=== PATIENT | female | born 2000 | race Caucasian/White ===

== ENCOUNTER 2021-10-17 05:05 | Inpatient (IN) | payer MEDICAID, SELFPAY ==
[2021-10-16] VITALS (13 sets, daily range): BP systolic 129–157; BP diastolic 82–97; PULSE 88–110; RESP 15; TEMP 36.2; BMI 33.0
[2021-10-16] MEDS: miSOPROStol 100 mcg tablet 25 MCG VAGINAL ×2 (19:22→23:25)
[2021-10-16 19:30] LABS: Amphetamines Screen Urine Negative (Negative); Barbiturates Screen Urine Negative (Negative); Benzodiazepines Screen Urine Negative (Negative); Cocaine Screen Urine Negative (Negative); Opiate Screen Urine Negative (Negative); PCP Screen Urine Negative (Negative); THC Screen Urine Negative (Negative)
[2021-10-16 19:52] LABS: Basophils # 0.1 10^3/uL (0.0-0.1); Basophils % 0.4 %; Eosinophils # 0.3 10^3/uL (0.0-0.8); Eosinophils % 2.6 %; Hematocrit 34.1 % (37.0-47.0); Lymphocytes # 2.1 10^3/uL (0.8-4.8); Lymphocytes % 18.6 %; Mean Corpuscular HGB Conc 35.2 g/dL (30.0-36.0); Mean Corpuscular Hemoglobin 32.2 pg (28.0-34.0); Mean Corpuscular Volume 91.4 fl (81-99); Mean Platelet Volume 11.7 fL (7.4-10.4); Monocytes # 0.8 10^3/uL (0.2-0.9); Monocytes % 7.2 %; Neutrophils # 7.98 10^3/uL (1.8-7.7); Neutrophils % 70.8 %; Nucleated Red Blood Cells % 0 %; Platelet Count 234 10^3/cmm (130-400); Red Blood Count 3.73 10^6/uL (4.1-5.3); Red Cell Distribution Width 13.5 % (12.1-15.1); White Blood Count 11.3 10^3/uL (4.0-10.0)
[2021-10-17] VITALS (118 sets, daily range): BP systolic 106–160; BP diastolic 54–99; PULSE 80–155; RESP 14–20; TEMP 35.9–37.4; O2SAT 95–100
[2021-10-17] MEDS: lactated ringers 1,000 ML 999 ML IV ×2 (02:25→08:52)
[2021-10-17] MEDS: fentaNYL 50 mcg/mL INJ 2mL IVP ×5 (02:54→09:06)
[2021-10-17] MEDS: miSOPROStol 100 mcg tablet 25 MCG VAGINAL ×2 (03:27→09:07)
[2021-10-17] MEDS: dextrose 5%-lactated ringers 1,000 ML 125 ML IV ×3 (06:22→19:37)
[2021-10-17] MEDS: ondansetron 2 mg/ML SDV 2 mL 4 MG IVP ×2 (10:49→21:41)
--- NOTE | 2021-10-17 11:00 | ANES.PAUD2 ---
Pre-Anesthetic Update Pre-Anesthetic Assessment: Date of Surgery/Procedure: 10/17/21 Proposed Procedure: Labor epidural Any changes to Pre-Anesthetic Assessment?: No Labs Last 48hrs: Short CBC 10/16/21 10/16/21 Range/Units 18:15 18:15 WBC Cancelled 11.3 H Hgb Cancelled 12.0 Hct Cancelled 34.1 L MCV Cancelled 91.4 Plt Count Cancelled 234 Neut % (Auto) Cancelled 70.8 Neut # (Auto) Cancelled 7.98 H Vitals: Temperature 97.7 F 10/17/21 10:18 Pulse Rate 142 H 10/17/21 10:51 Pulse Rhythm 10/16/21 18:15 Pulse Strength 0+ Absent 10/16/21 18:15 Respiratory Rate 20 H 10/17/21 09:06 Respiratory Effort Non-Labored 10/17/21 09:06 Respiratory Depth Normal 10/17/21 09:06 Respiratory Patter n 10/17/21 09:06 Blood Pressure 136/94 10/17/21 10:51 Pulse Oximetry 99 10/17/21 10:16 Oxygen Delivery Me thod 10/16/21 20:00 Exam: Pre-Anes Outpt Exam: alert, oriented x 3, clear to auscultation bilaterally and regular rate & rhythm Cardiac Studies: No Data to Display
--- NOTE | 2021-10-17 11:01 | ANES.PROC ---
Anesthesia Procedures Procedure/Date: 10/17/21 Epidural: Time Out Performed: Yes Consents Signed: Procedure Consent Consent: requested by attending/covering physician, from patient, risks and benefits reviewed and patient agrees to proceed Lumbar Level: L3-L4 Epidural position: sitting Epidural procedure: sterile prep of area, 1% lidocaine to numb the area, 18 g needle, neg for paresthesia, test dose given, 1.5% xylocaine 1:200k epi, placed PCEA, no systemic response, sterile dressing applied and 0.2% Ropiavacaine @ mls/hr (13) Additional Comments: CHRIS at 6cm, cath at 11cm, 5mls of 2% lido bolused
--- NOTE | 2021-10-17 12:00 | PM.OPHPUD ---
Labor & Delivery H&P Update Date of Procedure: October 17, 2021 Date H&P Performed: 10/14/21 Changes to previous documentation: None Admission Diagnosis: 21-year-old 1 at 31 weeks estimated gestational age Primary indication for procedure: Postdates. Currently 41 weeks estimated gestational age Planned procedure: Induction for spontaneous vaginal delivery Other information: The patient has had a that been relatively unremarkable. Earlier in her she was positive for marijuana. Her most recent blood tests have been negative. Her blood type is A-. She received a RhoGam shot on 22 July. She passed her glucose screen. Her group B strep was negative. Her Covid test was negative. She received a pertussis shot. The remainder of her labs are within normal limits.
[2021-10-17] MEDS: oxytocin 30 UNIT/500 ML BAG IV (13:15)
[2021-10-17] MEDS: famotidine 20 mg/2 mL INJ IVP (22:14)
[2021-10-17] MEDS: citric acid-sodium citrate 30 mL UDC PO (22:15)
[2021-10-17] MEDS: metoclopramide 5 mg/mL SDV 2 mL 10 MG IVP (22:15)
--- NOTE | 2021-10-17 23:36 | PM.OP ---
Operative Report Date of procedure: October 17, 2021 Pre-op diagnosis: 1. 21-year-old 1 at 41 weeks estimated gestational age. 2. Failure to progress Post-op diagnosis: Status post lower transverse section Procedure done: Lower transverse section Specimens removed/disposition: 1. Female infant with a weight of 8 pounds 0 ounces and Apgars of 6 and 8 2. Placenta with a three-vessel cord delivered intact Pathology: None Surgeon: Memo Kingston Estimated blood loss: 800 Complications: None Procedure: The patient was brought back to the operating room where she was prepped and draped in usual sterile fashion. Anesthesia was found to be adequate. A lower transverse skin incision was then made with a #10 blade. I then dissected down to the underlying subcutaneous tissue until arriving at the prerectal fascia. The fascia was then nicked with the scalpel bilaterally. The fascial incisions were then carried laterally with Ronquillo scissors. Attention was then turned to the superior aspect of the incision which was grasped with kochers and tented up away from the underlying rectus abdominis muscles. The muscles were then dissected away from the fascia manually, and later with Ronquillo scissors. Attention was then turned to the inferior aspect of the incision, and the fascia was dissected away from the underlying muscle in similar fashion. The rectus abdominis muscles were then spread manually. The peritoneum was entered manually. Excellent visualization of the uterus was noted. A lower transverse uterine incision was then made with a #10 blade. Upon arriving at the intrauterine cavity, the uterine incision was then extended manually. The infant was noted to be in vertex position. The baby was delivered without difficulty. After delivery of the head, the mouth and nose were suctioned at the site of the incision. There was no meconium. There was no nuchal cord. The remainder of the body was then delivered and placed on the abdomen. The cord was cut and clamped. The baby was then handed to the waiting nurse. The placenta was removed intact. The uterus was externalized. The intrauterine cavity was cleansed of any remaining debris. The uterine incision was reapproximated in 2 layers. The first layer was performed with 0 Vicryl in a running locked stitch. The second layer was an imbricating stitch also using 0 Vicryl. The uterus was replaced into the abdomen. The peritoneum was then irrigated with warm saline. I reexamined the uterine incision and found it to be hemostatic. The rectus abdominis muscles were then reapproximated using 0 Vicryl in a running stitch. The fascia was then reapproximated using 0 Vicryl in running stitch. The subcutaneous tissue was then reapproximated using 0 Vicryl in a running stitch. The skin was reapproximated using andrés. A sterile dressing was placed. All counts were correct x2. Both the mother and baby were in stable condition.
[2021-10-18] VITALS (14 sets, daily range): BP systolic 113–144; BP diastolic 63–92; PULSE 102–132; RESP 14–18; TEMP 36.6–37.9; O2SAT 93–96
--- NOTE | 2021-10-18 | PC.NURSE ---
Still in the OR at this time.
[2021-10-18] MEDS: dextrose 5%-lactated ringers 1,000 ML 125 ML IV (05:41)
--- NOTE | 2021-10-18 08:15 | ANE.PACU2 ---
Inpatient post-anesthesia follow up: Airway intact: Yes Vital signs: Temperature 100.3 F Pulse Rate 132 Respiratory Rate 16 Blood Pressure 143/85 Pulse Oximetry 95 Oxygen Delivery Me thod Room Air Oxygen Flow Rate Fraction of Inspir ed Oxygen Hydration adequate: Yes Nausea and vomiting: No Pain level: 3 Mental status: Baseline Additional Comments: Epidural converted to GETA
--- NOTE | 2021-10-18 10:48 | PM.OBGYPN ---
ADAPTED PHYSICAL EDUCATION SPECIALIST Subjective Subjective: Interval history: The patient is doing well. Her pain is been well controlled. She is breast-feeding well. Her bleeding has been within normal limits. She has passed gas Labor: Station: -2 Amniotic Membrane Status: Ruptured Monitor Mode: Palpation Contraction Pattern: Regular Status: Category I Vitals/I&O/Wt Last Vital Signs Temp 100.3 F H 10/18/21 05:30 Pulse 132 H 10/18/21 05:30 Resp 16 10/18/21 05:30 BP 143/85 10/18/21 05:30 Pulse Ox 95 10/18/21 05:30 10/17/21 10/18/21 10/18/21 22:59 06:59 14:59 Intake Total 789.650 / 3311.576 6372 / 3795.900 Output Total 1200 / 1200 1300 / 2500 2200 / 2200 Balance -410.350 / 595.900 700 / 1295.900 -2200 / -2200 Weight last 48 hrs Weight 205 lb Physical Exam Narrative: EXAM NARRATIVE: The patient is alert. She appears comfortable. Her heart has a regular rate and rhythm with no murmurs appreciated. Lungs are clear to auscultation bilaterally. Her fundus is firm and below the umbilicus. Urinary Catheter Management: Shrestha Latex: Cath Placed During This Visit: yes Reason for Continuing Indwelling Catheter: Perioperative Use in Selected Surgeries Urinary Catheter Date of Insertion: 10/17/21 Urinary Catheter Time of Insertion: 10:35 Data : 10/16/21 18:15 A&P Assessment and plan (1) Status post : I anticipate the patient will continue to do well. Since she has already passed gas, is ambulating today, and is breast-feeding well, she should be able to go home tomorrow. Status: Acute Attestations Medical Necessity Statement*: Routine post care. Coding Level of Care Code Acute Special Agent In Charge for Chg Fwd Diagnoses Status post Z98.891
[2021-10-18] MEDS: ketorolac 30 mg/mL INJ IVP ×3 (11:21→23:45)
[2021-10-18] MEDS: HYDROcodone-acetaminophen 5-325 mg Tablet PO (11:21)
--- NOTE | 2021-10-18 15:00 | PC.NURSE ---
Pt ambulated in hallway and around nursing station x1 lap. Pt did well without complaints.
[2021-10-18 15:36] LABS: Hemoglobin 10.7 g/dL (11.5-15.3); Mean Corpuscular HGB Conc 33.4 g/dL (30.0-36.0); Mean Corpuscular Hemoglobin 32.1 pg (28.0-34.0); Mean Corpuscular Volume 96.1 fl (81-99); Mean Platelet Volume 11.3 fL (7.4-10.4); Platelet Count 249 10^3/cmm (130-400); Red Blood Count 3.33 10^6/uL (4.1-5.3); Red Cell Distribution Width 13.6 % (12.1-15.1)
[2021-10-18] MEDS: docusate sodium 100 mg Capsule PO (18:23)
[2021-10-19 05:00] VITALS: BP 125/82; PULSE 99; RESP 18; TEMP 36.7
[2021-10-19] MEDS: HYDROcodone-acetaminophen 5-325 mg Tablet PO ×2 (05:57→15:33)
[2021-10-19] MEDS: docusate sodium 100 mg Capsule PO (10:01)
[2021-10-19] MEDS: prenatal vitamin Capsule 1 CAP PO (10:01)
[2021-10-19] MEDS: ibuprofen 800 mg tablet PO ×2 (10:02→15:33)
[2021-10-19 10:13] VITALS: BP 130/88; PULSE 97; RESP 16; TEMP 36.8; O2SAT 97
--- NOTE | 2021-10-19 12:29 | P.DS_ITS ---
Discharge Providers EDUCATION PROGRAM MANAGER Date of Admission: 10/17/21 05:05 Date of Discharge: 10/19/21 Attending Provider at Admission: Memo Kingston MD Attending Provider at Discharge: Memo Kingston MD Diagnoses at Discharge Discharge Diagnosis (1) Status post : Status: Acute Reason for Visit Reason for Visit: Induction Hospital Course Hospital Course The patient presented to the hospital for induction due to postdates. Unfortunately, she did not progress despite using Cytotec, an amniotomy, and Pitocin. As result a was performed. Her post course was unremarkable. Her bleeding was within normal limits. Her pain was well controlled. She passed flatus, and had her diet advanced appropriately. She to lerated her diet well. There were no concerns. Information Peripartum Data: Delivery Method: Physical Exam Narrative: EXAM NARRATIVE: She is in no acute distress Lungs are clear auscultation bilaterally Her heart has a regular rate and rhythm Her fundus is below the umbilicus and firm Her dressing is clean, dry and intact Her extremities have trace edema Urinary Catheter Management: Shrestha Latex: Cath Placed During This Visit: yes, but has since been removed by the nurse Reason for Continuing Indwelling Catheter: Decision to DC Catheter Urinary Catheter Date of Insertion: 10/17/21 Urinary Catheter Time of Insertion: 10:35 Date Urinary Catheter Removed: 10/18/21 Time Urinary Catheter Discontinued: 13:15 Discharge Data Studies Completed and Pending Pending at discharge Category Date Time Status Complete Crossmatch Stat Lab 10/16/21 18:15 Results Rho D Immune Globulin Stat Lab 10/16/21 18:15 Results Type and Screen Stat Lab 10/17/21 21:29 Results Laboratory Results WBC 21.0 10^3/uL (4.0-10.0) H 10/18/21 14:00 Corrected WBC Cancelled 10/16/21 18:15 RBC 3.33 10^6/uL (4.1-5.3) L 10/18/21 14:00 Hgb 10.7 g/dL (11.5-15.3) L 10/18/21 14:00 Hct 32.0 % (37.0-47.0) L 10/18/21 14:00 MCV 96.1 fl (81-99) 10/18/21 14:00 MCH 32.1 pg (28.0-34.0) 10/18/21 14:00 MCHC 33.4 g/dL (30.0-36.0) 10/18/21 14:00 RDW 13.6 % (12.1-15.1) 10/18/21 14:00 Plt Count 249 10^3/cmm (130-400) 10/18/21 14:00 MPV 11.3 fL (7.4-10.4) H 10/18/21 14:00 Gran % Cancelled 10/16/21 18:15 Neut % (Auto) 70.8 % 10/16/21 18:15 Neut % (Auto) Cancelled 10/16/21 18:15 Lymph % (Auto) 18.6 % 10/16/21 18:15 Lymph % (Auto) Cancelled 10/16/21 18:15 [place] % (Auto) 7.2 % 10/16/21 18:15 [place] % (Auto) Cancelled 10/16/21 18:15 Eos % (Auto) 2.6 % 10/16/21 18:15 Eos % (Auto) Cancelled 10/16/21 18:15 Baso % (Auto) 0.4 % 10/16/21 18:15 Baso % (Auto) Cancelled 10/16/21 18:15 Neut # (Auto) 7.98 10^3/uL (1.8-7.7) H 10/16/21 18:15 Neut # (Auto) Cancelled 10/16/21 18:15 Lymph # (Auto) 2.1 10^3/uL (0.8-4.8) 10/16/21 18:15 Lymph # (Auto) Cancelled 10/16/21 18:15 [place] # (Auto) 0.8 10^3/uL (0.2-0.9) 10/16/21 18:15 [place] # (Auto) Cancelled 10/16/21 18:15 Eos # (Auto) 0.3 10^3/uL (0.0-0.8) 10/16/21 18:15 Eos # (Auto) Cancelled 10/16/21 18:15 Baso # (Auto) 0.1 10^3/uL (0.0-0.1) 10/16/21 18:15 Baso # (Auto) Cancelled 10/16/21 18:15 Absolute Gran (auto) Cancelled 10/16/21 18:15 Nucleated RBC % (auto) 0 % 10/16/21 18:15 Nucleated RBC % (auto) Cancelled 10/16/21 18:15 Nucleated RBCs # 0.0 /100WBC 10/16/21 18:15 Nucleated RBCs # Cancelled 10/16/21 18:15 Urine Opiates Screen Negative ng/mL (Negative) 10/16/21 18:15 Ur Barbiturates Screen Negative ng/mL (Negative) 10/16/21 18:15 Ur Phencyclidine Scrn Negative ng/mL (Negative) 10/16/21 18:15 Ur Amphetamines Screen Negative ng/mL (Negative) 10/16/21 18:15 U Benzodiazepines Scrn Negative ng/mL (Negative) 10/16/21 18:15 Urine Cocaine Screen Negative ng/mL (Negative) 10/16/21 18:15 U Marijuana (THC) Screen Negative ng/mL (Negative) 10/16/21 18:15 Blood Type A Negative 10/16/21 18:15 Rho(D) Type Negative 10/16/21 18:15 Antibody Screen Negative 10/16/21 18:15 Screen Negative (Negative) 10/18/21 14:00 Vitals Last Vital Signs Temp 98.3 F 10/19/21 10:13 Pulse 97 10/19/21 10:13 Resp 16 10/19/21 10:13 BP 130/88 10/19/21 10:13 Pulse Ox 97 10/19/21 10:13 Discharge Plan Discharge Patient Disposition: Home Condition: Stable Prescriptions: New ibuprofen 800 mg Tablet 800 mg PO TID Qty: 45 0RF hydrocodone-acetaminophen 5-325 mg Tablet 1 tab PO Q4H PRN (Reason: Moderate To Severe Pain) Qty: 28 0RF docusate sodium 100 mg Capsule 100 mg PO BID Qty: 14 0RF -U 106.5-1 mg Capsule 1 cap PO BREAKFAST Qty: 90 0RF Discontinued hydrocortisone 2.5 % cream 1 applic topical BID PRN (Reason: skin irritation) 7 Days Qty: 28 0RF Discharge Orders: Discharge Order (Routine); Ordered 10/19/21 Ordered By: Memo Kingston Referrals: Memo Kingston MD [Physician] - 4-7 days (at same time as her . Also set up 6 week .) Discharge Diet: Advance as tolerated Discharge Activity: Limit activity as instructed Patient Instructions: Depression (DC), Bleeding (DC), Preeclampsia and Eclampsia After Delivery (GEN), COVID-19 and (GEN), OB - Vashti/Sánchez, OB Discharge Report, OB Food/Drug Interaction Guide, Opioid Safety, OB Home Care Discharge Attestations EDUCATION PROGRAM MANAGER Time Spent in Discharge Care*: less than 30 min Specific Discharge Activities: Specific discharge activities: educating patient and educating and/or supporting family/caregiver Coding Level of Care Code Acute Keying Machine Operator for Chg Fwd Diagnoses Status post Z98.891
[2021-10-19] MEDS: lanolin oint 7 gm 1 APPLIC TOPICAL (13:09)
[2021-10-19 15:39] VITALS: RESP 18
--- NOTE | 2021-10-19 15:39 | PC.NURSE ---
Rhogam administered IM to pt right deltoid
[2021-10-19 16:20] VITALS: BP 123/87; PULSE 98; RESP 16; TEMP 36.9; O2SAT 99
== END 2021-10-19 17:15 | disposition home or self-care (01) | DRG 788 ==
LOC: OPOB 05:05 → OBGYN 05:05
PROVIDERS: Admitting Provider Family Medicine; Visit Provider Family Medicine
PROC: 10D00Z1 Extraction of Products of Conception, Low, Open Approach (ICD-10-PCS; CPT 59514; principal; 2021-10-17 22:20)
DX: O48.0 Post-term pregnancy (principal); Z3A.41 41 weeks gestation of pregnancy; Z37.0 Single live birth; O99.334 Smoking (tobacco) complicating childbirth; F17.210 Nicotine dependence, cigarettes, uncomplicated; O61.0 Failed medical induction of labor
CPT/HCPCS: 12345; 36415; 51702; 59025; 59409; 80306; 85025; 85027; 85460; 86850; 86900; 90384; 96374; 96376; J1885; J2250; J2274; J2405; J2704; J2765; J2795; J3010; J3490

== ENCOUNTER 2022-10-05 13:01 | Emergency (ER) | payer MEDICAID, SELFPAY ==
[2022-10-05 13:08] VITALS: BP 157/114; PULSE 110; RESP 18; TEMP 36.2; O2SAT 97
--- NOTE | 2022-10-05 13:11 | ECG_ITS ---
[facility] Test Date: 2022-10-05 Pat Name: Eugene Rose Department: Room: Gender: Female Rug Dyer Helper: : 2000 Requested By: Satish Dawson Order Number: [id number] Poonam MD: Mj Rinaldi M.D. Measurements Intervals [place] Rate: 113 P: 71 PA: 131 QRS: 75 QRSD: 93 T: 7 QT: 328 QTc: 451 Interpretive Statements SINUS TACHYCARDIA NONSPECIFIC T-WAVE ABNORMALITY ABNORMAL RHYTHM ECG INTERPRETATION BASED ON A DEFAULT AGE OF 40 YEARS No previous ECG available for comparison Electronically Signed On 10-06-2022 7:07:08 TIMBER WATCHMAN by Mj Rinaldi M.D. [email or web address]
--- NOTE | 2022-10-05 13:53 | XRR_ITS ---
PROCEDURE INFORMATION: Exam: XR Chest Exam date and time: 10/05/2022 2:03 PM Age: 22 years old Clinical indication: Pain; Left-sided; Additional info: Palpitations TECHNIQUE: Imaging protocol: Radiologic exam of the chest. Views: 1 view. COMPARISON: No relevant prior studies available. FINDINGS: Lungs: Unremarkable. No consolidation. Pleural spaces: Unremarkable. No pleural effusion. No pneumothorax. Heart/Mediastinum: Unremarkable. No cardiomegaly. Bones/joints: Unremarkable. XR/XR chest 1V portable [id number] IMPRESSION: No acute findings.
--- NOTE | 2022-10-05 13:57 | ED_ITS ---
HPI - Chest Pain General: Chief Complaint: Chest Pain Stated Complaint: chest/left arm pain Time Seen by Provider: 10/05/22 13:20 History of Present Illness: Patient is a 22-year-old female that presents to the emergency department with 2-week history of palpitations with 2 episodes of chest pain that radiates up into the neck. Patient first noticed symptoms approximately 2 weeks ago. She denies any shortness of breath. She does report that the palpitations and tachycardia wake her up in the night. At the time of her evaluation here in the emergency department she is mildly tac hycardic at a rate of 105-110. Patient also brings up concerns for pupillary dilation. Patient has no familial history. Medical history includes ADHD. She takes Concerta. She has been struggling with some anxiety and has taken a couple Xanax from her family members. Patient also uses marijuana but no apparent stimulant use Associated symptoms: Deny abdominal pain, dyspnea, fever(s), nausea, palpitations or vomiting Review of Systems General: Reports: 10 or more systems reviewed and unremarkable except in HPI and below Const: Denies: fever(s), chills, change in appetite, change in weight, fatigue or malaise Eyes: Denies: change in vision, eye discomfort, eye discharge or eye redness ENMT: Denies: throat pain, enlarged tonsils, odynophagia, hoarseness, ear or mastoid pain, ear discharge, change in hearing, tinnitus, nasal discharge, nasal congestion, post nasal drip or sinus pain Card: Denies: chest pain, palpitations, irregular heart rhythm, edema, dyspnea on exertion, orthopnea or leg pain with exertion Resp: Denies: dyspnea, productive cough, non-productive cough, wheezing, stridor or chest congestion GI: Denies: abdominal pain, nausea, vomiting, dysphagia, diarrhea, constipation, bloating, GI cramping or hematochezia : Denies: flank pain, difficulty voiding, dysuria, urinary frequency, urinary urgency, urinary hesitancy, oliguria or hematuria Musc: Denies: neck pain, back pain, extremity pain, joint pain, joint swelli ng, joint redness, joint warmth or muscle weakness Skin/Breast: Denies: rash, pruritus, erythema, photosensitivity or new lesions Neuro: Denies: headache(s), numbness in extremities, weakness in extremities, sensory changes, lack of coordination, difficulty walking, frequent falls, dizziness, confusion, Slurred speech present, difficulty communicating thoughts, seizure-like activity or involuntary movements Endo: Denies: polyuria, polydipsia or tired all the time French/Lymph: Denies: easy bruising or easy bleeding PFS ED PFSH: Medical History ADHD Social History Smoking and tobacco status: current every day smoker Physical Exam Narrative: EXAM NARRATIVE: No acute distress Afebrile vital signs stable Nonlabored breathing Const: COMMON NORMALS: no acute distress, average body habitus, patient oriented x3, no limitations and well nourished HENMT: COMMON NORMALS: normocephalic, hearing grossly normal bilaterally and Normal external nose present HEAD & SCALP: normocephalic NOSE: Normal external nose present and Normal nares present MOUTH: Normal oral and palatal mucosa present Eye: COMMON NORMALS: Equal, round and reactive pupils present and EOMs intact bilaterally PUPIL: Yes Equal, round and reactive pupils present Neck/C-Spine: COMMON NORMALS: no JVD Chest: COMMONS NORMALS: normal inspection of the chest Resp: COMMON NORMALS: normal respiratory effort, No retractions, No use of accessory muscles and clear to auscultation bilaterally AUSCULTATION: clear to auscultation bilaterally Cardio: COMMON NORMALS: no JVD, regular rate, regular rhythm, S1 normal heart sound present, S2 normal heart sound present, No gallops present (Cardio), No clicks present (Cardio), No murmurs present (Cardio), No rub (Cardio) and Peripheral pulses 2+ throughout RATE: regular rate RHYTHM: regular rhythm HEART SOUNDS: S1 normal heart sound present and S2 normal heart sound present PERIPHERAL PULSES: Peripheral pulses 2+ throughout GI: COMMON NORMALS: Normal to inspection, nondistended, normoactive bowel sounds present and Soft to palpation PALPATION: Yes Soft to palpation Neuro: COMMON NORMALS: patient oriented x3 Psych: COMMON NORMALS: mental status grossly normal, Normal thought process present, cooperative, normal affect, speech normal, activity/motor behavior normal, denies homicidal ideation and denies suicidal ideation SPEECH: Yes normal speech THOUGHT PROCESS: Normal thought process present Course Vital Signs: Vital signs: Vital Signs Temperature 97.2 F L 10/05/22 13:08 Pulse Rate 95 10/05/22 14:33 Respiratory Rate 17 10/05/22 14:33 Blood Pressure 144/89 10/05/22 14:33 Pulse Oximetry 100 10/05/22 14:33 MDM - Chest Pain Medical Decision Making Patient was evaluated in the emergency department today for complaints of chest pain. Really she complains more of tachycardia and palpitations. Frontal diagnosis includes anxiety, substance abuse, stimulant use, arrhythmia, cardiovascular congenital anomaly, thyroid disorder Patient was evaluated in the emergency department and underwent EKG, chest x- ray, laboratory studies to further evaluate for this tachycardia. IV was started and she was given a liter of fluid. May have been some component of dehydration as her heart rate improved with a liter of fluid. Currently her heart rate is 88 beats a minute. She is normotensive and has remained so. Patient's EKG reveals sinus tachycardia with nonspecific T wave abnormality with a rate of 113. QTc was 395. Patient was concerned regarding her pupillary dilation. We discussed use of Xanax and I attribute her Concerta and Xanax use to the dilation. However, she is concerned that this may have been going on prior to the use of these medications. Laboratory studies were mostly unremarkable. Troponin was normal at 6. She does not show any evidence of leukocytosis, anemia, significant electrolyte abnormality, elevation in troponin, abnormal TSH. I have reviewed the case with Dr. Dawson. We discussed whether or not we would need a D-dimer. Since she is not currently having chest pain and is not currently tachycardic, we are going to forego at this time. Patient will follow up with primary care this week but we have also sent an order for case management to set up outpatient cardiology follow-up. Patient has not been recently exposed to COVID or has had the immunization. Patient is stable at this time and no further diagnostics are warranted. We are can have her follow-up with specialty. She is to return here for new, worsenin g, concerning symptoms. Questions sought and answered Lab Data 10/05/22 14:15 10/05/22 14:15 Radiology Impressions Chest X-Ray 10/05/22 13:53 IMPRESSION: No acute findings. Laboratory Results WBC 6.6 10^3/uL (4.0-10.0) 10/05/22 14:15 RBC 4.93 10^6/uL (4.1-5.3) 10/05/22 14:15 Hgb 15.9 g/dL (11.5-15.3) H 10/05/22 14:15 Hct 46.9 % (37.0-47.0) 10/05/22 14:15 MCV 95.1 fl (81-99) 10/05/22 14:15 MCH 32.3 pg (28.0-34.0) 10/05/22 14:15 MCHC 33.9 g/dL (30.0-36.0) 10/05/22 14:15 RDW 13.2 % (12.1-15.1) 10/05/22 14:15 Plt Count 312 10^3/cmm (130-400) 10/05/22 14:15 MPV 9.9 fL (7.4-10.4) 10/05/22 14:15 Neut % (Auto) 70.3 % 10/05/22 14:15 Lymph % (Auto) 20.8 % 10/05/22 14:15 Green % (Auto) 6.9 % 10/05/22 14:15 Eos % (Auto) 0.9 % 10/05/22 14:15 Baso % (Auto) 0.9 % 10/05/22 14:15 Neut # (Auto) 4.66 10^3/uL (1.8-7.7) 10/05/22 14:15 Lymph # (Auto) 1.4 10^3/uL (0.8-4.8) 10/05/22 14:15 [place] # (Auto) 0.5 10^3/uL (0.2-0.9) 10/05/22 14:15 Eos # (Auto) 0.1 10^3/uL (0.0-0.8) 10/05/22 14:15 Baso # (Auto) 0.1 10^3/uL (0.0-0.1) 10/05/22 14:15 Nucleated RBC % (auto) 0 % 10/05/22 14:15 Nucleated RBCs # 0.0 /100WBC 10/05/22 14:15 Sodium 135 mmol/L (136-145) L 10/05/22 14:15 Potassium 3.8 mmol/L (3.5-5.1) 10/05/22 14:15 Chloride 100 mmol/L (98-107) 10/05/22 14:15 Carbon Dioxide 23 mmol/L (22-29) 10/05/22 14:15 Anion Gap 15.8 (5-19) 10/05/22 14:15 BUN 8 mg/dL (6-20) 10/05/22 14:15 Creatinine 0.6 mg/dL (0.5-0.9) 10/05/22 14:15 GFR Calculation 123.9 mL/min (90-130) 10/05/22 14:15 Glucose 95 mg/dL (65-115) 10/05/22 14:15 Calculated Osmolality 278 mOsm/kg (285-295) L 10/05/22 14:15 Calcium 10.3 mg/dL (8.5-10.5) 10/05/22 14:15 Magnesium 2.1 mg/dL (1.7-2.3) 10/05/22 14:15 Total Bilirubin 1.0 mg/dL (0.15-1.2) 10/05/22 14:15 AST 19 U/L (0-32) 10/05/22 14:15 ALT 17 U/L (0-33) 10/05/22 14:15 Alkaline Phosphatase 66 U/L (35-105) 10/05/22 14:15 Troponin T Baseline 6 ng/L (0-10) 10/05/22 14:15 Total Protein 7.5 g/dL (6.6-8.7) 10/05/22 14:15 Albumin 4.8 g/dL (3.5-5.2) 10/05/22 14:15 Globulin 2.7 g/dL (1.3-4.6) 10/05/22 14:15 TSH 1.53 uIU/mL (0.27-4.20) 10/05/22 14:15 Urine Color Dark yellow (Yellow) 10/05/22 15:12 Urine Appearance Clear (CLEAR) 10/05/22 15:12 Urine pH 8 (5-7) H 10/05/22 15:12 Ur Specific [place] 1.015 (1.005-1.030) 10/05/22 15:12 Urine Protein Neg (Negative) 10/05/22 15:12 Urine Glucose (UA) Norm (Normal) 10/05/22 15:12 Urine Ketones 1+ (Negative) H 10/05/22 15:12 Urine Blood Neg (Negative) 10/05/22 15:12 Urine Nitrate Negative (Negative) 10/05/22 15:12 Urine Bilirubin Neg (Negative) 10/05/22 15:12 Prot Sulfosalicylic Acd Negative (Negative) 10/05/22 15:12 Urine Urobilinogen 1 mg/dL (Negative) H 10/05/22 15:12 Ur Leukocyte Esterase Trace (Negative) H 10/05/22 15:12 Urine RBC None /hpf (0-2) 10/05/22 15:12 Urine WBC 5-10 /hpf (0-5) H 10/05/22 15:12 Ur Squamous Epith Cells 25-40 /hpf (0-5) H 10/05/22 15:12 Amorphous Sediment Not Reportable 10/05/22 15:12 Urine Bacteria 2+ /hpf (NONE) H 10/05/22 15:12 Urine Mucus 2+ /hpf 10/05/22 15:12 Urine Opiates Screen Negative ng/mL (Negative) 10/05/22 15:12 Ur Barbiturates Screen Negative ng/mL (Negative) 10/05/22 15:12 Ur Phencyclidine Scrn Negative ng/mL (Negative) 10/05/22 15:12 Ur Amphetamines Screen Negative ng/mL (Negative) 10/05/22 15:12 U Benzodiazepines Scrn Negative ng/mL (Negative) 10/05/22 15:12 Urine Cocaine Screen Negative ng/mL (Negative) 10/05/22 15:12 U Marijuana (THC) Screen Positive ng/mL (Negative) H 10/05/22 15:12 Discharge Plan Discharge Patient Disposition: Home Clinical Impression: Tachycardia, unspecified Condition: Stable Prescriptions: No Action methylphenidate HCl 30 mg capsule, ER biphasic 30-70 30 mg PO DAILY 30 Days Qty: 30 0RF clindamycin HCl 150 mg capsule 450 mg PO TID 10 Days Qty: 90 0RF methylphenidate HCl [Concerta] 27 mg tablet extended release 24hr 27 mg PO DAILY 30 Days Qty: 30 0RF Discharge Orders: Discharge ED (Routine); Ordered 10/05/22 Ordered By: Cristin Verdugo Referrals: Félix Felix MD [Primary Care Provider] - Discharge Diet: Advance as tolerated Discharge Activity: Resume usual activity Patient Instructions: Chest Pain (ED), Tachycardia (ED), Pain Management Activity Restrictions/Additional Instructions: Please return to the emergency department for new, concerning, worsening symptoms Coding Level of Care Code ED Beater And Pulper Feeder for Maite Claros
[2022-10-05 14:30] LABS: Basophils # 0.1 10^3/uL (0.0-0.1); Basophils % 0.9 %; Eosinophils # 0.1 10^3/uL (0.0-0.8); Eosinophils % 0.9 %; Hematocrit 46.9 % (37.0-47.0); Hemoglobin 15.9 g/dL (11.5-15.3); Lymphocytes # 1.4 10^3/uL (0.8-4.8); Lymphocytes % 20.8 %; Mean Corpuscular HGB Conc 33.9 g/dL (30.0-36.0); Mean Corpuscular Hemoglobin 32.3 pg (28.0-34.0); Mean Corpuscular Volume 95.1 fl (81-99); Mean Platelet Volume 9.9 fL (7.4-10.4); Monocytes # 0.5 10^3/uL (0.2-0.9); Monocytes % 6.9 %; Neutrophils # 4.66 10^3/uL (1.8-7.7); Neutrophils % 70.3 %; Nucleated Red Blood Cells % 0 %; Platelet Count 312 10^3/cmm (130-400); Red Blood Count 4.93 10^6/uL (4.1-5.3); Red Cell Distribution Width 13.2 % (12.1-15.1); White Blood Count 6.6 10^3/uL (4.0-10.0)
[2022-10-05 14:33] VITALS: BP 144/89; PULSE 95; RESP 17; O2SAT 100
[2022-10-05] MEDS: sodium chloride 0.9% 1,000 ML 999 ML IV (14:42)
[2022-10-05 14:44] LABS: Troponin(5th) Baseline 6 ng/L (0-10)
[2022-10-05 14:50] LABS: Alanine Aminotransferase 17 U/L (0-33); Albumin Level 4.8 g/dL (3.5-5.2); Alkaline Phosphatase 66 U/L (35-105); Anion Gap 15.8 (5-19); Aspartate Amino Transferase 19 U/L (0-32); Blood Urea Nitrogen 8 mg/dL (6-20); Calcium 10.3 mg/dL (8.5-10.5); Carbon Dioxide 23 mmol/L (22-29); Chloride 100 mmol/L (98-107); Globulin 2.7 g/dL (1.3-4.6); Glomerular Filtration Rate 123.9 mL/min (90-130); Glucose 95 mg/dL (65-115); Magnesium 2.1 mg/dL (1.7-2.3); Osmolality Calculated 278 mOsm/kg (285-295); Potassium 3.8 mmol/L (3.5-5.1); Sodium 135 mmol/L (136-145); Total Protein 7.5 g/dL (6.6-8.7)
[2022-10-05 14:51] LABS: Thyroid Stimulating Hormone 1.53 uIU/mL (0.27-4.20)
[2022-10-05 15:33] LABS: Bilirubin Urine Neg (Negative); Blood Urine Neg (Negative); Glucose Urine UA Norm (Normal); Ketones Urine 1+ (Negative); Nitrate Urine Negative (Negative); Protein Urine Neg (Negative); Specific Gravity, Urine 1.015 (1.005-1.030); Sulfosalicylic Acid Urine Negative (Negative); Urine Appearance Clear (CLEAR); Urine Color Dark Yellow (Yellow); Urobilinogen Urine 1 mg/dL (Negative); pH Urine 8 (5-7)
[2022-10-05 15:34] LABS: Add Urine Microscopic? YES; Leukocyte Esterase Urine Trace (Negative)
[2022-10-05 15:36] LABS: Bacteria Urine 2+ /hpf; Mucus Urine 2+ /hpf; Squamous Epithelial Cell Urine 25-40 /hpf (0-5)
[2022-10-05 15:37] LABS: Add Urine Culture? No
[2022-10-05 16:24] LABS: Amphetamines Screen Urine Negative (Negative); Barbiturates Screen Urine Negative (Negative); Benzodiazepines Screen Urine Negative (Negative); Cocaine Screen Urine Negative (Negative); Opiate Screen Urine Negative (Negative); PCP Screen Urine Negative (Negative); THC Screen Urine Positive (Negative)
--- NOTE | 2022-10-06 12:18 | DCPLANNER ---
Addendum entered by Felipa Molina 11/19/22 08:18: this appointment was rescheduled Addendum entered by Felipa Molina 10/08/22 10:37: Patient has a follow up appointment scheduled for Friday, November 18, 2022 at 1:[address] Gonzalez at [facility]. Clinic will call patient with appointment information. Original Note: manager data warehouse had message to schedule a follow up appointment for patient with cardiology. manager data warehouse sent patients information to the front office staff at [facility]. Patients information will be printed and reviewed. Clinic will call patient with appointment information.
== END 2022-10-05 17:01 | disposition home or self-care (01) ==
PROVIDERS: Emergency Provider Nurse Practitioner; PCP Family Medicine
DX: R00.0 Tachycardia, unspecified (principal); F17.210 Nicotine dependence, cigarettes, uncomplicated
CPT/HCPCS: 71045; 80053; 80306; 81001; 83735; 84443; 84484; 85025; 93005; 99285; J7030

== ENCOUNTER → 2023-01-27 15:12 | Outpatient (BNVA) | payer MEDICAID, SELFPAY | PROVIDERS: PCP Family Medicine; Visit Provider Internal Medicine Cardiovascular Disease | DX: R00.0 Tachycardia, unspecified (principal); R42 Dizziness and giddiness; R07.9 Chest pain, unspecified; R06.09 Other forms of dyspnea | CPT/HCPCS: 93005 ==

== ENCOUNTER 2023-10-19 07:34 | Emergency (ER) | payer MEDICAID, SELFPAY ==
[2023-10-19] VITALS (16 sets, daily range): BP systolic 127–153; BP diastolic 95–110; PULSE 92–121; RESP 13–29; TEMP 37; O2SAT 95–100; BMI 29.8
--- NOTE | 2023-10-19 08:31 | ECG_ITS ---
[facility] Test Date: 2023-10-19 Pat Name: Eugene Rose Department: Room: Gender: Female Superannuation Clerk: : 2000 Requested By: Marcelo Hopson Order Number: [id number] Poonam MD: Gualberto Rivera M.D. Measurements Intervals [place] Rate: 118 P: 42 MA: 138 QRS: 54 QRSD: 85 T: 14 QT: 322 QTc: 452 Interpretive Statements SINUS TACHYCARDIA NONSPECIFIC T-WAVE ABNORMALITY ABNORMAL RHYTHM ECG Compared to ECG 01/27/2023 15:16:41 T-wave abnormality now present Sinus rhythm no longer present Electronically Signed On 10-19-2023 19:27:08 [place] OPERATOR by Gualberto Rivera M.D. [id number]
--- NOTE | 2023-10-19 08:31 | XRR_ITS ---
PROCEDURE INFORMATION: Exam: XR Chest Exam date and time: 10/19/2023 8:34 AM Age: 23 years old Clinical indication: Pain; Angina pectoris; Additional info: Palpitations/cxp TECHNIQUE: Imaging protocol: Radiologic exam of the chest. Views: 1 view. COMPARISON: CR XR chest 1V portable [id number] 10/05/2022 2:03 PM FINDINGS: Lungs: Normal lung volumes. No interstitial or air space opacities seen. Pleural spaces: No pleural effusion. No pneumothorax. Heart/Mediastinum: Normal heart size. Normal mediastinum. Midline trachea. Bones/joints: No acute osseous abnormalities seen. XR/XR chest 1V portable [id number] IMPRESSION: No acute cardiopulmonary disease seen on the chest radiograph.
[2023-10-19 09:00] LABS: Basophils # 0.1 10^3/uL (0.0-0.1); Basophils % 0.7 %; Eosinophils # 0.2 10^3/uL (0.0-0.8); Eosinophils % 2.2 %; Lymphocytes # 1.5 10^3/uL (0.8-4.8); Lymphocytes % 21.4 %; Mean Corpuscular HGB Conc 34.5 g/dL (30-55); Mean Corpuscular Hemoglobin 34.1 pg (27-33); Mean Corpuscular Volume 98.7 fl (85-98); Mean Platelet Volume 9.9 fL (7.4-10.4); Monocytes # 0.5 10^3/uL (0.2-0.9); Monocytes % 6.9 %; Neutrophils # 4.93 10^3/uL (1.8-7.7); Neutrophils % 68.5 %; Nucleated Red Blood Cells % 0 %; Platelet Count 281 10^3/cmm (157-399); Red Blood Count 4.46 10^6/uL (3.85-5.65); Red Cell Distribution Width 13.1 % (12.1-15.1)
[2023-10-19 09:16] LABS: Albumin Level 4.3 g/dL (3.5-5.2); Chloride 102 mmol/L (98-107); Potassium 3.8 mmol/L (3.5-5.1); Sodium 139 mmol/L (136-145)
[2023-10-19] MEDS: metoprolol tartrate 1 mg/1 mL SDV 5 mL 2.5 MG IVP (09:17)
[2023-10-19 09:28] LABS: Alanine Aminotransferase 13 U/L (0-33); Alkaline Phosphatase 86 U/L (35-105); Anion Gap 14.8 (5-19); Aspartate Amino Transferase 18 U/L (0-32); Blood Urea Nitrogen 11 mg/dL (6-20); Calcium 9.5 mg/dL (8.5-10.5); Carbon Dioxide 26 mmol/L (22-29); Glomerular Filtration Rate 102.8 mL/min (90-130); Glucose 99 mg/dL (65-115); Osmolality Calculated 287 mOsm/kg (285-295); Total Bilirubin 0.6 mg/dL (0.15-1.2); Total Protein 7.3 g/dL (6.6-8.7)
[2023-10-19 09:31] LABS: HCG Qualitative Urine. Negative (Negative)
[2023-10-19 09:36] LABS: Amphetamines Screen Urine Negative (Negative); Barbiturates Screen Urine Negative (Negative); Benzodiazepines Screen Urine Negative (Negative); Cocaine Screen Urine Negative (Negative); Opiate Screen Urine Negative (Negative); PCP Screen Urine Negative (Negative); THC Screen Urine Positive (Negative)
--- NOTE | 2023-10-19 09:49 | W.ED.ARRPALP ---
HPI - Arrhythmia/Palpitations General: Chief Complaint: Arrhythmia/Palpitations Stated Complaint: blood pressure issues Time Seen by Provider: 10/19/23 07:38 History of Present Illness: 23-year-old female presents emergency department complaints of having intermittent episodes of fast beating heart. She is currently tachycardic here in the emergency department. She states she has been feeling worse intermittently over the previous several days. She states that when her heart starts beating fast she also feels short of breath. She states she did wear heart monitor in November 2022 for 2 weeks but became allergic to the adhesive and had to stop using it. Review of Systems General: Reports: 10 or more systems reviewed and unremarkable except in HPI and below Card: Reports: palpitations Neuro: Reports: dizziness [facility] ED PFSH: Medical History ADHD Social History Smoking and tobacco/nicotine status: current every day tobacco/nicotine user Physical Exam Narrative: EXAM NARRATIVE: Constitutional: the patient appears well nourished and with normal development. Vital signs reviewed as documented. HENMT: Normocephalic, atraumatic. External ears normal appearance without drainage. Nose without drainage, normal appearance. Mucus membranes moist. Neck is supple, No jugular venous distension, trachea is midline, no appreciable carotid bruits. No lymphadenopathy. No meningeal signs. Flexion, extension and lateral rotation is without pain. Eyes: Pupils are equal, round, reactive to light and accommodation. No scleral icterus. Extra-ocular movement are intact. Thorax is symmetrical and with equal rise and fall with respirations. Resp: Lungs are clear to auscultation. No wheezes, rales, crackles or ronchi at present. Cardio: Sinus tachycardia. positive S1, S2. No appreciable murmurs, rubs or gallops. GI: Abdominal exam reveals normal bowel sounds to all quadrants. No organomegaly. No obvious palpable masses noted. No hepatomegally appreciated. Soft, non-tender to palpation. Extremity: Extremities are non-edematous and both femoral and pedal pulses are 2+ and equal bilaterally. Moves all extremities well, sensation in all extremities. Neuro: Alert and oriented x4, person, place, time and situation. Cranial nerves II through XII are grossly intact, there is no focal neurological deficits that I can appreciate at present. Motor strength in the upper and lower extremities are equal and bilateral 5/5. Psych: Cooperative, calm, normal thought process, appropriate judgment. Skin: No lesions, rashes. No gross abnormalities noted. Back: Symmetrical, no obvious deformity, No CVA tenderness Course Vital Signs: Vital signs: Vital Signs Temperature 98.6 F 10/19/23 07:38 Pulse Rate 99 10/19/23 09:00 Respiratory Rate 13 10/19/23 09:00 Blood Pressure 153/105 10/19/23 09:00 Pulse Oximetry 100 10/19/23 09:00 Oxygen Delivery Me thod Room Air 10/19/23 07:38 MDM - Arrhythmia/Palpitations Medical Decision Making Physical exam completed and documented I will obtain a CBC and CMP serial cardiac enzymes twelve-lead EKG and chest x-ray have provided IV beta-anthony was significant for better control of patient's blood pressure and heart rate. I will prescribe her metoprolol and have her follow-up with her primary and cardiology. Medical Records I reviewed the patient's medical records. Lab Data I reviewed the patient's lab results. 10/19/23 08:40 10/19/23 08:40 Radiology Impressions Chest X-Ray 10/19/23 08:31 IMPRESSION: No acute cardiopulmonary disease seen on the chest radiograph. Laboratory Results WBC 7.20 10^3/uL (3.29-11.43) 10/19/23 08:40 RBC 4.46 10^6/uL (3.85-5.65) 10/19/23 08:40 Hgb 15.20 g/dL (11.27-16.99) 10/19/23 08:40 Hct 44.0 % (36-47) 10/19/23 08:40 MCV 98.7 fl (85-98) H 10/19/23 08:40 MCH 34.1 pg (27-33) H 10/19/23 08:40 MCHC 34.5 g/dL (30-55) 10/19/23 08:40 RDW 13.1 % (12.1-15.1) 10/19/23 08:40 Plt Count 281 10^3/cmm (157-399) 10/19/23 08:40 MPV 9.9 fL (7.4-10.4) 10/19/23 08:40 Neut % (Auto) 68.5 % 10/19/23 08:40 Lymph % (Auto) 21.4 % 10/19/23 08:40 [place] % (Auto) 6.9 % 10/19/23 08:40 Eos % (Auto) 2.2 % 10/19/23 08:40 Baso % (Auto) 0.7 % 10/19/23 08:40 Neut # (Auto) 4.93 10^3/uL (1.8-7.7) 10/19/23 08:40 Lymph # (Auto) 1.5 10^3/uL (0.8-4.8) 10/19/23 08:40 [place] # (Auto) 0.5 10^3/uL (0.2-0.9) 10/19/23 08:40 Eos # (Auto) 0.2 10^3/uL (0.0-0.8) 10/19/23 08:40 Baso # (Auto) 0.1 10^3/uL (0.0-0.1) 10/19/23 08:40 Nucleated RBC % (auto) 0 % 10/19/23 08:40 Nucleated RBCs # 0.0 /100WBC 10/19/23 08:40 Sodium 139 mmol/L (136-145) 10/19/23 08:40 Potassium 3.8 mmol/L (3.5-5.1) 10/19/23 08:40 Chloride 102 mmol/L (98-107) 10/19/23 08:40 Carbon Dioxide 26 mmol/L (22-29) 10/19/23 08:40 Anion Gap 14.8 (5-19) 10/19/23 08:40 BUN 11 mg/dL (6-20) 10/19/23 08:40 Creatinine 0.7 mg/dL (0.5-0.9) 10/19/23 08:40 GFR Calculation 102.8 mL/min (90-130) 10/19/23 08:40 Glucose 99 mg/dL (65-115) 10/19/23 08:40 Calculated Osmolality 287 mOsm/kg (285-295) 10/19/23 08:40 Calcium 9.5 mg/dL (8.5-10.5) 10/19/23 08:40 Total Bilirubin 0.6 mg/dL (0.15-1.2) 10/19/23 08:40 AST 18 U/L (0-32) 10/19/23 08:40 ALT 13 U/L (0-33) 10/19/23 08:40 Alkaline Phosphatase 86 U/L (35-105) 10/19/23 08:40 Total Protein 7.3 g/dL (6.6-8.7) 10/19/23 08:40 Albumin 4.3 g/dL (3.5-5.2) 10/19/23 08:40 Globulin 3.0 g/dL (1.3-4.6) 10/19/23 08:40 HCG, Qual Negative (Negative) 10/19/23 09:06 Urine Opiates Screen Negative ng/mL (Negative) 10/19/23 09:06 Ur Barbiturates Screen Negative ng/mL (Negative) 10/19/23 09:06 Ur Phencyclidine Scrn Negative ng/mL (Negative) 10/19/23 09:06 Ur Amphetamines Screen Negative ng/mL (Negative) 10/19/23 09:06 U Benzodiazepines Scrn Negative ng/mL (Negative) 10/19/23 09:06 Urine Cocaine Screen Negative ng/mL (Negative) 10/19/23 09:06 U Marijuana (THC) Screen Positive ng/mL (Negative) H 10/19/23 09:06 All radiology interpretation(s) finalized by discharge EKG Data EKG 1: Interpretation: Twelve-lead EKG obtained at 841 and reviewed at 1841 demonstrates sinus tachycardia with a ventricular rate of 118 AL interval 138 QRS duration 85 QT 322 QTc [address] elevation or depression to demonstrate acute ischemia or infarction at present. Other EKG comments: Chest X-Ray 10/19/23 08:31 IMPRESSION: No acute cardiopulmonary disease seen on the chest radiograph. Discharge Plan Discharge Patient Disposition: Home Clinical Impression: Tachycardia, Hypertension, uncontrolled Condition: Stable Prescriptions: New metoprolol succinate 25 mg tablet extended release 24 hr 12.5 mg PO DAILY Qty: 30 0RF No Action ibuprofen 200 mg Capsule 800 mg PO Q6H PRN (Reason: Pain) Discharge Orders: Discharge ED (Routine); Ordered 10/19/23 Ordered By: Marcelo Hopson Referrals: Carlos Matos M.D [Physician] - Félix Felix MD [Primary Care Provider] - Discharge Diet: Advance as tolerated Discharge Activity: Resume usual activity Patient Instructions: Opioid Safety, Pain Management Coding Level of Care Code ED Party Plan Dealer for Maite Claros
[2023-10-19 09:58] LABS: Add Urine Culture? No; Add Urine Microscopic? YES; Bacteria Urine TRACE /hpf; Bilirubin Urine Neg (Negative); Blood Urine Neg (Negative); Glucose Urine UA Norm (Normal); Ketones Urine Negative (Negative); Leukocyte Esterase Urine Negative (Negative); Mucus Urine TRACE /hpf; Nitrate Urine Negative (Negative); Protein Urine Neg (Negative); RBC Urine 0-4 /hpf (0-2); Urine Appearance SL Hazy (CLEAR); Urine Color Yellow (Yellow); Urobilinogen Urine 1 mg/dL (Negative); WBC Urine 0-4 /hpf (0-5); pH Urine 7 (5-7)
== END 2023-10-19 10:13 | disposition home or self-care (01) ==
PROVIDERS: Emergency Provider Internal Medicine; PCP Family Medicine
DX: R00.0 Tachycardia, unspecified (principal); I10 Essential (primary) hypertension; Z72.0 Tobacco use
CPT/HCPCS: 71045; 80053; 80306; 81001; 81025; 85025; 93005; 96374; 99285; J3490

== ENCOUNTER → 2023-10-20 15:40 | Outpatient (BNVA) | payer MEDICAID, SELFPAY | PROVIDERS: PCP Family Medicine; Visit Provider Family Medicine | DX: R00.0 Tachycardia, unspecified (principal); R07.9 Chest pain, unspecified; Z09 Encounter for follow-up examination after completed treatment for conditions other than malignant neoplasm | CPT/HCPCS: 84443; 85379 ==

== ENCOUNTER 2024-06-19 12:02 | Emergency (ER) | payer MEDICAID, SELFPAY ==
--- NOTE | 2024-06-19 12:03 | XRR_ITS ---
PROCEDURE INFORMATION: Exam: XR Chest Exam date and time: 06/19/2024 12:49 PM Age: 24 years old Clinical indication: Chest pressure; Patient HX: Left chest pain that radiates posteriorly TECHNIQUE: Imaging protocol: Radiologic exam of the chest. Views: 1 view. COMPARISON: CR XR chest 1V portable [id number] 10/19/2023 8:34 AM FINDINGS: Lungs: Unremarkable. No consolidation. Pleural spaces: Unremarkable. No pleural effusion. No pneumothorax. Heart/Mediastinum: Unremarkable. No cardiomegaly. Bones/joints: Unremarkable. XR/XR chest 1V portable [id number] IMPRESSION: No acute findings.
--- NOTE | 2024-06-19 12:04 | ECG_ITS ---
[facility] Test Date: 2024-06-19 Pat Name: Eugene Rose Department: Room: Gender: Female Flanger: : 2000 Requested By: Libia Moura Order Number: [id number] Poonam MD: Carlos Matos M.D. Measurements Intervals [place] Rate: 106 P: 58 DE: 139 QRS: 83 QRSD: 90 T: 22 QT: 336 QTc: 448 Interpretive Statements SINUS TACHYCARDIA NONSPECIFIC T-WAVE ABNORMALITY Compared to ECG 10/19/2023 08:41:33 No significant changes Electronically Signed On 06-20-2024 18:47:37 CDT by Carlos Matos M.D. [id number]
[2024-06-19 12:10] VITALS: BP 133/90; PULSE 100; RESP 17; TEMP 36.6; O2SAT 97; BMI 33.9
[2024-06-19 12:42] LABS: Basophils # 0.1 10^3/uL (0.0-0.1); Basophils % 0.7 %; Eosinophils # 0.2 10^3/uL (0.0-0.8); Eosinophils % 2.1 %; Hematocrit 44.5 % (36-47); Lymphocytes # 2.1 10^3/uL (0.8-4.8); Lymphocytes % 23.6 %; Mean Corpuscular HGB Conc 33.9 g/dL (30-55); Mean Corpuscular Volume 100.2 fl (85-98); Mean Platelet Volume 9.6 fL (7.4-10.4); Monocytes # 0.5 10^3/uL (0.2-0.9); Monocytes % 5.6 %; Neutrophils % 67.7 %; Nucleated Red Blood Cells % 0 %; Platelet Count 354 10^3/cmm (157-399); Red Blood Count 4.44 10^6/uL (3.85-5.65); Red Cell Distribution Width 12.4 % (12.1-15.1); White Blood Count 8.88 10^3/uL (3.29-11.43)
[2024-06-19 12:54] LABS: HCG, Serum Qual Negative (Negative)
[2024-06-19 12:59] LABS: Alanine Aminotransferase 20 U/L (0-33); Albumin Level 4.2 g/dL (3.5-5.2); Alkaline Phosphatase 95 U/L (35-105); Aspartate Amino Transferase 19 U/L (0-32); Blood Urea Nitrogen 8 mg/dL (6-20); Calcium 9.2 mg/dL (8.5-10.5); Carbon Dioxide 27 mmol/L (22-29); Chloride 103 mmol/L (98-107); Creatinine Clr Calc Pharmacy 142.9043; Globulin 2.9 g/dL (1.3-4.6); Glucose 100 mg/dL (65-115); Lipase 22 U/L (13-60); Osmolality Calculated 286 mOsm/kg (285-295); Sodium 139 mmol/L (136-145); Total Bilirubin 0.3 mg/dL (0.15-1.2); Total Protein 7.1 g/dL (6.6-8.7)
[2024-06-19 13:00] LABS: Troponin(5th) Baseline < 6 ng/L (0-10)
--- NOTE | 2024-06-19 14:03 | ECG_ITS ---
[facility] Test Date: 2024-06-19 Pat Name: Eugene Rose Department: Room: Gender: Female Java Software: : 2000 Requested By: Libia Moura Order Number: [id number] Poonam MD: Carlos Matos M.D. Measurements Intervals [place] Rate: 86 P: 62 RI: 144 QRS: 81 QRSD: 89 T: 40 QT: 355 QTc: 426 Interpretive Statements SINUS RHYTHM Compared to ECG 06/19/2024 12:04:50 Sinus tachycardia no longer present T-wave abnormality no longer present Electronically Signed On 06-20-2024 18:56:50 CDT by Carlos Matos M.D. [id number]
--- NOTE | 2024-06-19 15:30 | ED_ITS ---
HPI - Chest Pain 2 General: Chief Complaint: Chest Pain Stated Complaint: chest pain Time Seen by Provider: 06/19/24 14:56 History of Present Illness: 24-year-old female comes in today with c omplaints of chest discomfort. Patient was concerned due to her elevated blood pressure history. Patient has had chest pain on and off for over 1 year. Patient been seen in the ER little over a year ago and had a cardiology follow-up but then did not continue on for stress test or further evaluation. Patient reports that over the last few days she has noticed an increase in pain that was worse today which prompted her to come to the ER. Patient appears nontoxic. Patient appears in no pain at this time. Related Data Home Medications Medication Instructions Recorded Confirmed metoprolol succinate 50 mg 50 mg PO DAILY 05/19/24 05/19/24 tablet,extended release 24 hr Previous Rx's Medication Instructions Recorded cyclobenzaprine 5 mg tablet 5 mg PO TID PRN muscle spasm #30 11/13/23 tabs naproxen 375 mg tablet 375 mg PO BID #60 tabs 11/13/23 Allergies Allergy/AdvReac Type Severity Reaction Status Date / Time Penicillins Allergy ADR-Gastrointestinal Verified 11/13/23 08:20 Upset Review of Systems 2 General: Reports: 10 or more systems reviewed and unremarkable except in HPI and below PFSH ED 2 PFSH: Medical History Depression Hypertension ADHD Social History Smoking and tobacco/nicotine status: unknown if used tobacco/nicotine Female Reproductive History: Date of last menstrual period: 06/16/24 Physical Exam 2 Const: COMMON NORMALS: alert HENMT: COMMON NORMALS: normocephalic HEAD & SCALP: normocephalic Neck/C-Spine: COMMON NORMALS: full ROM Resp: COMMON NORMALS: normal respiratory effort and clear to auscultation bilaterally AUSCULTATION: clear to auscultation bilaterally Cardio: COMMON NORMALS: regular rate RATE: regular rate Back/Pelvis: COMMON NORMALS: thoracic and lumbar spine normal to inspection Extremity: COMMON NORMALS: no pedal edema Neuro: SENSORIUM/ORIENTATION: Yes alert Skin: COMMON NORMALS: turgor normal GENERAL SKIN EXAM: turgor normal Course 2 Vital Signs: Vital signs: Vital Signs Temperature 97.9 F 06/19/24 12:10 Pulse Rate 87 06/19/24 16:34 Respiratory Rate 17 06/19/24 12:10 Blood Pressure 131/87 06/19/24 16:34 Pulse Oximetry 99 06/19/24 16:34 Oxygen Delivery Me thod Room Air 06/19/24 16:34 MDM - Chest Pain Medical Decision Making 24-year-old female comes in today with increased chest pain over the last few days. Patient appears nontoxic. Respirations are even lungs are clear to auscultation. Vital signs are normal except for some mild elevation of blood pressure 133/90. Differential diagnosis includes angina, ACS unlikely, PE unlikely, GERD, uncontrolled hypertension, anxiety about health. No change in troponin at 2-hour jose. CBC CMP were unremarkable. Chest x-ray was normal. Most likely patient's chest pain may be due to high blood pressure poorly controlled. Recommend patient go ahead and make an appointment with cardiology for follow-up. Case management was requested to assist with that. No signs of acute illness were noted. Other possibilities may be a lack of mitral valve prolapse or anxiety. Lab Data 06/19/24 12:32 06/19/24 12:32 Radiology Impressions Chest X-Ray 06/19/24 12:03 IMPRESSION: No acute findings. Laboratory Results WBC 8.88 10^3/uL (3.29-11.43) 06/19/24 12:32 RBC 4.44 10^6/uL (3.85-5.65) 06/19/24 12:32 Hgb 15.10 g/dL (11.27-16.99) 06/19/24 12:32 Hct 44.5 % (36-47) 06/19/24 12:32 MCV 100.2 fl (85-98) H 06/19/24 12:32 MCH 34.0 pg (27-33) H 06/19/24 12:32 MCHC 33.9 g/dL (30-55) 06/19/24 12:32 RDW 12.4 % (12.1-15.1) 06/19/24 12:32 Plt Count 354 10^3/cmm (157-399) 06/19/24 12:32 MPV 9.6 fL (7.4-10.4) 06/19/24 12:32 Neut % (Auto) 67.7 % 06/19/24 12:32 Lymph % (Auto) 23.6 % 06/19/24 12:32 [place] % (Auto) 5.6 % 06/19/24 12:32 Eos % (Auto) 2.1 % 06/19/24 12:32 Baso % (Auto) 0.7 % 06/19/24 12:32 Neut # (Auto) 6.00 10^3/uL (1.8-7.7) 06/19/24 12:32 Lymph # (Auto) 2.1 10^3/uL (0.8-4.8) 06/19/24 12:32 [place] # (Auto) 0.5 10^3/uL (0.2-0.9) 06/19/24 12:32 Eos # (Auto) 0.2 10^3/uL (0.0-0.8) 06/19/24 12:32 Baso # (Auto) 0.1 10^3/uL (0.0-0.1) 06/19/24 12:32 Nucleated RBC % (auto) 0 % 06/19/24 12:32 Nucleated RBCs # 0.0 /100WBC 06/19/24 12:32 Sodium 139 mmol/L (136-145) 06/19/24 12:32 Potassium 4.0 mmol/L (3.5-5.1) 06/19/24 12:32 Chloride 103 mmol/L (98-107) 06/19/24 12:32 Carbon Dioxide 27 mmol/L (22-29) 06/19/24 12:32 Anion Gap 13.0 (5-19) 06/19/24 12:32 BUN 8 mg/dL (6-20) 06/19/24 12:32 Creatinine 0.7 mg/dL (0.5-0.9) 06/19/24 12:32 GFR Calculation 102.0 mL/min (90-130) 06/19/24 12:32 Glucose 100 mg/dL (65-115) 06/19/24 12:32 Calculated Osmolality 286 mOsm/kg (285-295) 06/19/24 12:32 Calcium 9.2 mg/dL (8.5-10.5) 06/19/24 12:32 Total Bilirubin 0.3 mg/dL (0.15-1.2) 06/19/24 12:32 AST 19 U/L (0-32) 06/19/24 12:32 ALT 20 U/L (0-33) 06/19/24 12:32 Alkaline Phosphatase 95 U/L (35-105) 06/19/24 12:32 Troponin T Baseline < 6 ng/L (0-10) 06/19/24 12:32 Troponin T 120 Minute 6.00 ng/L (0-10) 06/19/24 15:09 Delta Troponin T 0.58642 ABS# (0-10) 06/19/24 15:09 Total Protein 7.1 g/dL (6.6-8.7) 06/19/24 12:32 Albumin 4.2 g/dL (3.5-5.2) 06/19/24 12:32 Globulin 2.9 g/dL (1.3-4.6) 06/19/24 12:32 Lipase 22 U/L (13-60) 06/19/24 12:32 HCG, Qual Negative (Negative) 06/19/24 12:32 All radiology interpretation(s) finalized by discharge Discharge Plan Discharge Patient Disposition: Home Clinical Impression: Chest pain Qualifiers: Chest pain type: unspecified Qualified Code(s): R07.9 - Chest pain, unspecified Condition: Stable Prescriptions: No Action metoprolol succinate 50 mg tablet extended release 24 hr 50 mg PO DAILY cyclobenzaprine 5 mg tablet 5 mg PO TID PRN (Reason: muscle spasm) Qty: 30 0RF naproxen 375 mg tablet 375 mg PO BID Qty: 60 0RF Discharge Orders: Discharge ED (Routine); Ordered 06/19/24 Ordered By: Thai Beaver Referrals: Félix Felix MD [Primary Care Provider] - Discharge Diet: Usual diet Discharge Activity: Increase activity as tolerated Patient Instructions: Chest Pain (ED) Activity Restrictions/Additional Instructions: Follow-up with primary care for further instructions. manager presentation will contact you regarding follow-up appointment with cardiology. Return to ER for worsening symptoms or new concerns. Coding Level of Care Code ED Roller Shop Supervisor for Maite Claros
[2024-06-19 15:32] LABS: Troponin 5 2HR Delta 0.00001 ABS# (0-10)
[2024-06-19 16:34] VITALS: BP 131/87; BP 136/81; PULSE 84; PULSE 87; O2SAT 98; O2SAT 99
--- NOTE | 2024-06-20 08:23 | DCPLANNER ---
messaged heart for er f/u
== END 2024-06-19 16:36 | disposition home or self-care (01) ==
PROVIDERS: Emergency Medicine; Emergency Provider Nurse Practitioner Family; PCP Family Medicine
DX: R07.9 Chest pain, unspecified (principal); I10 Essential (primary) hypertension
CPT/HCPCS: 36415; 71045; 80053; 83690; 84484; 84703; 85025; 93005; 99285

== ENCOUNTER 2024-07-20 19:49 | Emergency (ER) | payer MEDICAID, SELFPAY ==
[2024-07-20 20:01] VITALS: BP 164/117; PULSE 107; TEMP 37.2; O2SAT 99; BMI 34.7
--- NOTE | 2024-07-20 20:12 | W.ED.HA ---
HPI - Headache General: Chief Complaint: Headache Stated Complaint: unstable bp Time Seen by Provider: 07/20/24 20:10 History of Present Illness: 24-year-old female comes in today for complaints of headache and dizziness. Patient also has noticed that her blood pressure was elevated today. Patient appears nontoxic. Patient appears no acute distress. Respirations are even. Skin is warm and dry. Related Data Home Medications Medication Instructions Recorded Confirmed metoprolol succinate 50 mg 50 mg PO DAILY 05/19/24 05/19/24 tablet,extended release 24 hr Previous Rx's Medication Instructions Recorded cyclobenzaprine 5 mg tablet 5 mg PO TID PRN muscle spasm #30 11/13/23 tabs naproxen 375 mg tablet 375 mg PO BID #60 tabs 11/13/23 hydrochlorothiazide 12.5 mg tablet 12.5 mg PO DAILY #30 tabs 07/20/24 Allergies Allergy/AdvReac Type Severity Reaction Status Date / Time Penicillins Allergy ADR-Gastrointestinal Verified 07/20/24 20:06 Upset Review of Systems General: Reports: 10 or more systems reviewed and unremarkable except in HPI and below Neuro: Reports: headache(s) and dizziness PFS ED PFSH: Medical History Depression Hypertension ADHD Social History Smoking and tobacco/nicotine status: unknown if used tobacco/nicotine Physical Exam Const: COMMON NORMALS: alert HENMT: COMMON NORMALS: normocephalic HEAD & SCALP: normocephalic Neck/C-Spine: COMMON NORMALS: full ROM and no meningeal signs Resp: COMMON NORMALS: normal respiratory effort and clear to auscultation bilaterally AUSCULTATION: clear to auscultation bilaterally Cardio: COMMON NORMALS: regular rate and regular rhythm RATE: regular rate RHYTHM: regular rhythm GI: COMMON NORMALS: non-tender Back/Pelvis: COMMON NORMALS: thoracic and lumbar spine normal to inspection Extremity: COMMON NORMALS: full ROM Neuro: SENSORIUM/ORIENTATION: Yes alert MENINGEAL SIGNS: Yes no meningeal signs Skin: COMMON NORMALS: turgor normal GENERAL SKIN EXAM: turgor normal Course Vital Signs: Vital signs: Vital Signs Temperature 99.0 F 07/20/24 20:01 Pulse Rate 107 H 07/20/24 20:01 Blood Pressure 164/117 07/20/24 20:01 Pulse Oximetry 99 07/20/24 20:01 Oxygen Delivery Me thod Room Air 07/20/24 20:01 MDM - Headache Medical Decision Making 24-year-old female comes in today for complaints of severe headache and dizziness. Patient also reports uncontrolled hypertension. Patient appears nontoxic. No focal neurodeficits. Differential diagnosis includes migraine, intracranial bleeding, uncontrolled hypertension, tension headache, malignant hypertension. Patient was given 10 mg of labetalol, 10 mg of metoclopramide, and 12 and half milligrams of Benadryl. Patient had improvement of blood pressure and resolution of headache. Patient refused CT scan as she had family waiting for her in the car and she did not want to wait for results. No focal neurodeficits was noted. Patient was prescribed 12-1/2 mg of hydrochlorothiazide to take with her metoprolol and recommended to follow-up with primary care in 1 week. Recommend patient return to ER for worsening symptoms. Patient reported understanding agreed to plan. Lab Data 07/20/24 20:34 07/20/24 20:34 No radiology studies performed this visit Discharge Plan Discharge Patient Disposition: Home Clinical Impression: Hypertension Qualifiers: Hypertension type: unspecified Qualified Code(s): I10 - Essential (primary) hypertension Headache Qualifiers: Headache type: unspecified Headache chronicity pattern: unspecified pattern Intractability: not intractable Qualified Code(s): R51.9 - Headache, unspecified Condition: Stable Prescriptions: New hydrochlorothiazide 12.5 mg tablet 12.5 mg PO DAILY Qty: 30 2RF No Action metoprolol succinate 50 mg tablet extended release 24 hr 50 mg PO DAILY cyclobenzaprine 5 mg tablet 5 mg PO TID PRN (Reason: muscle spasm) Qty: 30 0RF naproxen 375 mg tablet 375 mg PO BID Qty: 60 0RF Discharge Orders: Discharge ED (Routine); Ordered 07/20/24 Ordered By: Thai Beaver Referrals: Félix Felix MD [Primary Care Provider] - Discharge Diet: Usual diet Discharge Activity: Increase activity as tolerated Patient Instructions: Hypertension (ED) Activity Restrictions/Additional Instructions: Follow-up with primary care in 1 week for recheck of blood pressure. Return to ER for worsening symptoms. Take hydrochlorothiazide when you first get up in the morning as it make your increased urination. Continue with the metoprolol as directed. Coding Level of Care Code ED Certified First Assistant for Maite Claros
[2024-07-20] MEDS: metoclopramide 5 mg/mL SDV 2 mL 10 MG IVP (20:25)
[2024-07-20] MEDS: diphenhydrAMINE 50 mg/mL SDV 1mL 12.5 MG IVP (20:28)
[2024-07-20] MEDS: labetalol 5 mg/mL SDV 20mL 20 MG IVP (20:30)
[2024-07-20 20:49] VITALS: BP 146/91; PULSE 100; RESP 16; O2SAT 99
[2024-07-20 20:49] LABS: Basophils % 0.4 %; Eosinophils # 0.2 10^3/uL (0.0-0.8); Eosinophils % 1.8 %; Hematocrit 42.3 % (36-47); Lymphocytes # 2.4 10^3/uL (0.8-4.8); Lymphocytes % 26.3 %; Mean Corpuscular HGB Conc 35.2 g/dL (30-55); Mean Corpuscular Hemoglobin 33.6 pg (27-33); Mean Corpuscular Volume 95.3 fl (85-98); Monocytes # 0.5 10^3/uL (0.2-0.9); Monocytes % 5.6 %; Neutrophils # 5.96 10^3/uL (1.8-7.7); Neutrophils % 65.7 %; Nucleated Red Blood Cells % 0 %; Platelet Count 327 10^3/cmm (157-399); Red Blood Count 4.44 10^6/uL (3.85-5.65); Red Cell Distribution Width 11.6 % (12.1-15.1); White Blood Count 9.08 10^3/uL (3.29-11.43)
[2024-07-20 21:08] LABS: Anion Gap 14.5 (5-19); Blood Urea Nitrogen 8 mg/dL (6-20); Calcium 8.7 mg/dL (8.5-10.5); Carbon Dioxide 23 mmol/L (22-29); Chloride 104 mmol/L (98-107); Creatinine Clr Calc Pharmacy 144.6638; Glucose 100 mg/dL (65-115); Osmolality Calculated 284 mOsm/kg (285-295); Potassium 3.5 mmol/L (3.5-5.1); Sodium 138 mmol/L (136-145)
== END 2024-07-20 20:51 | disposition home or self-care (01) ==
PROVIDERS: Emergency Provider Nurse Practitioner Family; PCP Family Medicine
DX: R51.9 Headache, unspecified (principal); I10 Essential (primary) hypertension
CPT/HCPCS: 80048; 85025; 96374; 96375; 99285; J1200; J2765; J3490

== ENCOUNTER 2024-09-13 04:42 | Emergency (ER) | payer MEDICAID, SELFPAY ==
[2024-09-13] VITALS (8 sets, daily range): BP systolic 120–143; BP diastolic 72–99; PULSE 83–108; RESP 14–21; TEMP 37.2; O2SAT 97–100
--- NOTE | 2024-09-13 04:50 | ECG_ITS ---
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 Measurements Intervals [place] Rate: 109 P: 40 IN: 154 QRS: 41 QRSD: 86 T: -23 QT: 335 QTc: 453 Interpretive Statements SINUS TACHYCARDIA LOW QRS VOLTAGE IN PRECORDIAL LEADS [QRS DEFLECTION < 1.0 mV IN CHEST LEADS] NONSPECIFIC T-WAVE ABNORMALITY Compared to ECG 06/19/2024 14:25:36 Low QRS voltage now present T-wave abnormality now present Sinus rhythm no longer present Electronically Signed On 09-13-2024 22:06:10 TECHNICAL PROFESSIONAL by Gualberto Rivera M.D. [email or web address]
--- NOTE | 2024-09-13 05:32 | XRR_ITS ---
PROCEDURE INFORMATION: Exam: XR Chest Exam date and time: 09/13/2024 5:40 AM Age: 24 years old Clinical indication: Pain; Chest pressure; Additional info: Cp TECHNIQUE: Imaging protocol: Radiologic exam of the chest. Views: 1 view. COMPARISON: CR XR chest 1V portable [id number] 06/19/2024 12:49 PM FINDINGS: Lungs: Unremarkable. No consolidation. Pleural spaces: Unremarkable. No pleural effusion. No pneumothorax. Heart/Mediastinum: Unremarkable. No cardiomegaly. Bones/joints: Unremarkable. XR/XR chest 1V portable [id number] IMPRESSION: No acute findings.
--- NOTE | 2024-09-13 05:46 | W.ED.CHESTPA ---
Documented by User: Cesar Gibson, 09/13/24 21:22 HPI - Chest Pain General: Chief Complaint: Chest Pain Stated Complaint: Left arm, jaw, chest pain sporadic Time Seen by Provider: 09/13/24 04:59 History of Present Illness: 24-year-old female with a history of hypertension and tachycardia. She usually is controlled with amlodipine and metoprolol. She presents with chest discomfort, to the left upper chest radiating into her jaw and into her shoulder. This has happened on and off for the past day or so. She has not been ill otherwise. No cough, no congestion no fever. Essentially no shortness of breath. No vomiting. Related Data Home Medications Medication Instructions Recorded Confirmed hydrochlorothiazide 12.5 mg tablet 12.5 mg PO DAILY 09/13/24 09/13/24 Previous Rx's Medication Instructions Recorded amlodipine 5 mg tablet 5 mg PO DAILY #30 tabs 07/21/24 metoprolol succinate 100 mg 100 mg PO DAILY #30 ea 07/21/24 capsule sprinkle, ext. release 24 hr Allergies Allergy/AdvReac Type Severity Reaction Status Date / Time Penicillins Allergy ADR-Gastrointestinal Verified 07/20/24 20:06 Upset [facility] [place] ED [facility]: Medical History Depression Hypertension ADHD Social History Smoking and tobacco/nicotine status: unknown if used tobacco/nicotine Physical Exam Const: COMMON NORMALS: no acute distress GENERAL APPEARANCE: cooperative; not ill appearing and not frail appearing HENMT: COMMON NORMALS: normocephalic, atraumatic and Normal external nose present HEAD & SCALP: normocephalic and atraumatic FACE & SINUS: normal facial exam and face symmetric NOSE: Normal external nose present Eye: COMMON NORMALS: Equal, round and reactive pupils present and EOMs intact bilaterally PUPIL: Yes Equal, round and reactive pupils present Neck/C-Spine: GENERAL: Yes trachea midline Chest: CHEST: Yes Symmetrical chest wall rise Resp: COMMON NORMALS: normal respiratory effort, No retractions, No use of accessory muscles and clear to auscultation bilaterally AUSCULTATION: clear to auscultation bilaterally Cardio: COMMON NORMALS: regular rhythm RATE: tachycardic RHYTHM: regular rhythm GI: COMMON NORMALS: Normal to inspection, nondistended, normoactive bowel sounds present Extremity: COMMON NORMALS: no pedal edema Neuro: TAMARA COMA SCALE: document GCS findings Tamara coma scale eye opening: Spontaneous Tamara coma scale verbal response: Orientated Anthony coma scale motor response: Obey commands Anthony coma scale total score: 15 SENSORY EXAM: Yes extremities (intact) Psych: COMMON NORMALS: speech normal SPEECH: Yes normal speech Skin: COMMON NORMALS: no rashes or lesions noted GENERAL SKIN EXAM: no rashes or lesions noted Course Vital Signs: Vital signs: Vital Signs Temperature 99.0 F 09/13/24 06:31 Pulse Rate 83 09/13/24 07:58 Respiratory Rate 16 09/13/24 07:58 Blood Pressure 120/72 09/13/24 07:58 Pulse Oximetry 97 09/13/24 07:58 Oxygen Delivery Me thod Room Air 09/13/24 05:17 MDM - Chest Pain Medical Decision Making Patient is tachycardic at rest. Saturations are normal. Laboratories pending. EKG shows sinus tachycardia with a rate of 109, normal axis, intervals are normal. She has T wave inversions in lead III, with an S wave in lead I. Chest x-ray is clear. Should be checked out at shift change pending laboratory results. Lab Data 09/13/24 06:15 09/13/24 06:15 Radiology Impressions Chest X-Ray 09/13/24 05:32 IMPRESSION: No acute findings. Laboratory Results WBC 6.32 10^3/uL (3.29-11.43) 09/13/24 06:15 RBC 4.76 10^6/uL (3.85-5.65) 09/13/24 06:15 Hgb 14.90 g/dL (11.27-16.99) 09/13/24 06:15 Hct 44.9 % (36-47) 09/13/24 06:15 MCV 94.3 fl (85-98) 09/13/24 06:15 MCH 31.3 pg (27-33) 09/13/24 06:15 MCHC 33.2 g/dL (30-55) 09/13/24 06:15 RDW 12.4 % (12.1-15.1) 09/13/24 06:15 Plt Count 323 10^3/cmm (157-399) 09/13/24 06:15 MPV 10.5 fL (7.4-10.4) H 09/13/24 06:15 Neut % (Auto) 66.7 % 09/13/24 06:15 Lymph % (Auto) 24.5 % 09/13/24 06:15 [place] % (Auto) 6.2 % 09/13/24 06:15 Eos % (Auto) 1.6 % 09/13/24 06:15 Baso % (Auto) 0.8 % 09/13/24 06:15 Neut # (Auto) 4.22 10^3/uL (1.8-7.7) 09/13/24 06:15 Lymph # (Auto) 1.6 10^3/uL (0.8-4.8) 09/13/24 06:15 [place] # (Auto) 0.4 10^3/uL (0.2-0.9) 09/13/24 06:15 Eos # (Auto) 0.1 10^3/uL (0.0-0.8) 09/13/24 06:15 Baso # (Auto) 0.1 10^3/uL (0.0-0.1) 09/13/24 06:15 Nucleated RBC % (auto) 0 % 09/13/24 06:15 Nucleated RBCs # 0.0 /100WBC 09/13/24 06:15 D-Dimer 0.29 ug/mLFEU (0-0.59) 09/13/24 06:15 Sodium 140 mmol/L (136-145) 09/13/24 06:15 Potassium 3.3 mmol/L (3.5-5.1) L 09/13/24 06:15 Chloride 103 mmol/L (98-107) 09/13/24 06:15 Carbon Dioxide 22 mmol/L (22-29) 09/13/24 06:15 Anion Gap 18.3 (5-19) 09/13/24 06:15 BUN 6 mg/dL (6-20) 09/13/24 06:15 Creatinine 0.7 mg/dL (0.5-0.9) 09/13/24 06:15 GFR Calculation 102.0 mL/min (90-130) 09/13/24 06:15 Glucose 113 mg/dL (65-115) 09/13/24 06:15 Calculated Osmolality 288 mOsm/kg (285-295) 09/13/24 06:15 Calcium 9.7 mg/dL (8.5-10.5) 09/13/24 06:15 Magnesium 1.8 mg/dL (1.7-2.3) 09/13/24 06:15 Total Bilirubin 0.6 mg/dL (0.15-1.2) 09/13/24 06:15 AST 15 U/L (0-32) 09/13/24 06:15 ALT 11 U/L (0-33) 09/13/24 06:15 Alkaline Phosphatase 72 U/L (35-105) 09/13/24 06:15 Troponin T Baseline < 6 ng/L (0-10) 09/13/24 06:15 NT-Pro-B Natriuret Pep 257 pg/mL (0-125) H 09/13/24 06:15 Total Protein 6.7 g/dL (6.6-8.7) 09/13/24 06:15 Albumin 4.4 g/dL (3.5-5.2) 09/13/24 06:15 Globulin 2.3 g/dL (1.3-4.6) 09/13/24 06:15 TSH 4.66 uIU/mL (0.27-4.20) H 09/13/24 06:15 Discharge Plan Discharge Patient Disposition: Home Clinical Impression: Tachycardia Chest pain Qualifiers: Chest pain type: unspecified Qualified Code(s): R07.9 - Chest pain, unspecified Condition: Stable Prescriptions: No Action metoprolol succinate 100 mg capsule,sprinkle,ER 24hr 100 mg PO DAILY Qty: 30 11RF amlodipine 5 mg tablet 5 mg PO DAILY Qty: 30 11RF hydrochlorothiazide 12.5 mg tablet 12.5 mg PO DAILY Discharge Orders: Discharge ED (Routine); Ordered 09/13/24 Ordered By: Brody Oro Referrals: Félix Felix MD [Primary Care Provider] - 4-7 days Patient Instructions: Opioid Safety, Pain Management Activity Restrictions/Additional Instructions: Return for worsening chest pain, shortness of breath, fever, vomiting, other concerning symptoms. See your doctor next week. Sign Out Sign Out Data: Patient Sign Out occurred on 09/13/24 at 07:23. Patient's care was discussed, and care was transferred from Cesar Gibson DO to Brody Oro DO. Coding Level of Care Code ED [facility] for Chg Fwd Documented by User: Brody Oro DO 09/13/24 12:55 HPI - Chest Pain General: Chief Complaint: Chest Pain Stated Complaint: Left arm, jaw, chest pain sporadic Time Seen by Provider: 09/13/24 04:59 Related Data Home Medications Medication Instructions Recorded Confirmed hydrochlorothiazide 12.5 mg tablet 12.5 mg PO DAILY 09/13/24 09/13/24 Previous Rx's Medication Instructions Recorded amlodipine 5 mg tablet 5 mg PO DAILY #30 tabs 07/21/24 metoprolol succinate 100 mg 100 mg PO DAILY #30 ea 07/21/24 capsule sprinkle, ext. release 24 hr Allergies Allergy/AdvReac Type Severity Reaction Status Date / Time Penicillins Allergy ADR-Gastrointestinal Verified 07/20/24 20:06 Upset [facility] ED PFSH: Medical History Depression Hypertension ADHD Social History Smoking and tobacco/nicotine status: unknown if used tobacco/nicotine Physical Exam Neuro: TAMARA COMA SCALE: document GCS findings Anthony coma scale total score: 15 Course Vital Signs: Vital signs: Vital Signs Temperature 99.0 F 09/13/24 06:31 Pulse Rate 83 09/13/24 07:58 Respiratory Rate 16 09/13/24 07:58 Blood Pressure 120/72 09/13/24 07:58 Pulse Oximetry 97 09/13/24 07:58 Oxygen Delivery Me thod Room Air 09/13/24 05:17 MDM - Chest Pain Medical Decision Making Patient is tachycardic at rest. Saturations are normal. Laboratories pending. EKG shows sinus tachycardia with a rate of 109, normal axis, intervals are normal. She has T wave inversions in lead III, with an S wave in lead I. Chest x-ray is clear. Should be checked out at shift change pending laboratory results. Care assumed at change of shift the patient is doing well no further symptoms troponins D-dimer negative EKGs reviewed chest x-ray reviewed as well. Will discharge patient home likely more musculoskeletal or pleuritic no sign of acute coronary syndrome pneumonia pneumothorax dissecting aneurysm or PE. Follow-up with primary care can use Tylenol or ibuprofen for discomfort. Medical Records I reviewed the patient's medical records. Lab Data I reviewed the patient's lab results. 09/13/24 06:15 09/13/24 06:15 Radiology Impressions Chest X-Ray 09/13/24 05:32 IMPRESSION: No acute findings. Laboratory Results WBC 6.32 10^3/uL (3.29-11.43) 09/13/24 06:15 RBC 4.76 10^6/uL (3.85-5.65) 09/13/24 06:15 Hgb 14.90 g/dL (11.27-16.99) 09/13/24 06:15 Hct 44.9 % (36-47) 09/13/24 06:15 MCV 94.3 fl (85-98) 09/13/24 06:15 MCH 31.3 pg (27-33) 09/13/24 06:15 MCHC 33.2 g/dL (30-55) 09/13/24 06:15 RDW 12.4 % (12.1-15.1) 09/13/24 06:15 Plt Count 323 10^3/cmm (157-399) 09/13/24 06:15 MPV 10.5 fL (7.4-10.4) H 09/13/24 06:15 Neut % (Auto) 66.7 % 09/13/24 06:15 Lymph % (Auto) 24.5 % 09/13/24 06:15 [place] % (Auto) 6.2 % 09/13/24 06:15 Eos % (Auto) 1.6 % 09/13/24 06:15 Baso % (Auto) 0.8 % 09/13/24 06:15 Neut # (Auto) 4.22 10^3/uL (1.8-7.7) 09/13/24 06:15 Lymph # (Auto) 1.6 10^3/uL (0.8-4.8) 09/13/24 06:15 [place] # (Auto) 0.4 10^3/uL (0.2-0.9) 09/13/24 06:15 Eos # (Auto) 0.1 10^3/uL (0.0-0.8) 09/13/24 06:15 Baso # (Auto) 0.1 10^3/uL (0.0-0.1) 09/13/24 06:15 Nucleated RBC % (auto) 0 % 09/13/24 06:15 Nucleated RBCs # 0.0 /100WBC 09/13/24 06:15 D-Dimer 0.29 ug/mLFEU (0-0.59) 09/13/24 06:15 Sodium 140 mmol/L (136-145) 09/13/24 06:15 Potassium 3.3 mmol/L (3.5-5.1) L 09/13/24 06:15 Chloride 103 mmol/L (98-107) 09/13/24 06:15 Carbon Dioxide 22 mmol/L (22-29) 09/13/24 06:15 Anion Gap 18.3 (5-19) 09/13/24 06:15 BUN 6 mg/dL (6-20) 09/13/24 06:15 Creatinine 0.7 mg/dL (0.5-0.9) 09/13/24 06:15 GFR Calculation 102.0 mL/min (90-130) 09/13/24 06:15 Glucose 113 mg/dL (65-115) 09/13/24 06:15 Calculated Osmolality 288 mOsm/kg (285-295) 09/13/24 06:15 Calcium 9.7 mg/dL (8.5-10.5) 09/13/24 06:15 Magnesium 1.8 mg/dL (1.7-2.3) 09/13/24 06:15 Total Bilirubin 0.6 mg/dL (0.15-1.2) 09/13/24 06:15 AST 15 U/L (0-32) 09/13/24 06:15 ALT 11 U/L (0-33) 09/13/24 06:15 Alkaline Phosphatase 72 U/L (35-105) 09/13/24 06:15 Troponin T Baseline < 6 ng/L (0-10) 09/13/24 06:15 NT-Pro-B Natriuret Pep 257 pg/mL (0-125) H 09/13/24 06:15 Total Protein 6.7 g/dL (6.6-8.7) 09/13/24 06:15 Albumin 4.4 g/dL (3.5-5.2) 09/13/24 06:15 Globulin 2.3 g/dL (1.3-4.6) 09/13/24 06:15 TSH 4.66 uIU/mL (0.27-4.20) H 09/13/24 06:15 All radiology interpretation(s) finalized by discharge Discharge Plan Discharge Patient Disposition: Home Clinical Impression: Tachycardia Chest pain Qualifiers: Chest pain type: unspecified Qualified Code(s): R07.9 - Chest pain, unspecified Condition: Stable Prescriptions: No Action metoprolol succinate 100 mg capsule,sprinkle,ER 24hr 100 mg PO DAILY Qty: 30 11RF amlodipine 5 mg tablet 5 mg PO DAILY Qty: 30 11RF hydrochlorothiazide 12.5 mg tablet 12.5 mg PO DAILY Discharge Orders: Discharge ED (Routine); Ordered 09/13/24 Ordered By: Brody Oro Referrals: Félix Felix MD [Primary Care Provider] - 4-7 days Patient Instructions: Opioid Safety, Pain Management Activity Restrictions/Additional Instructions: Return for worsening chest pain, shortness of breath, fever, vomiting, other concerning symptoms. See your doctor next week. Sign Out Sign Out Data: Patient Sign Out occurred on 09/13/24 at 07:23. Patient's care was discussed, and care was transferred from Cesar Gibson DO to Brody Oro DO. Coding Level of Care Code ED [facility] for Maite Claros
[2024-09-13] MEDS: metoprolol tartrate 1 mg/1 mL SDV 5 mL 5 MG IVP (06:22)
[2024-09-13 06:25] LABS: Basophils # 0.1 10^3/uL (0.0-0.1); Basophils % 0.8 %; Eosinophils # 0.1 10^3/uL (0.0-0.8); Eosinophils % 1.6 %; Hematocrit 44.9 % (36-47); Lymphocytes # 1.6 10^3/uL (0.8-4.8); Lymphocytes % 24.5 %; Mean Corpuscular HGB Conc 33.2 g/dL (30-55); Mean Corpuscular Hemoglobin 31.3 pg (27-33); Mean Corpuscular Volume 94.3 fl (85-98); Mean Platelet Volume 10.5 fL (7.4-10.4); Monocytes # 0.4 10^3/uL (0.2-0.9); Monocytes % 6.2 %; Neutrophils # 4.22 10^3/uL (1.8-7.7); Neutrophils % 66.7 %; Nucleated Red Blood Cells % 0 %; Platelet Count 323 10^3/cmm (157-399); Red Blood Count 4.76 10^6/uL (3.85-5.65); Red Cell Distribution Width 12.4 % (12.1-15.1); White Blood Count 6.32 10^3/uL (3.29-11.43)
[2024-09-13 06:40] LABS: D Dimer 0.29 ug/mLFEU (0-0.59)
[2024-09-13 06:43] LABS: Troponin(5th) Baseline < 6 ng/L (0-10)
[2024-09-13 06:52] LABS: Alanine Aminotransferase 11 U/L (0-33); Albumin Level 4.4 g/dL (3.5-5.2); Alkaline Phosphatase 72 U/L (35-105); Anion Gap 18.3 (5-19); Aspartate Amino Transferase 15 U/L (0-32); Blood Urea Nitrogen 6 mg/dL (6-20); Calcium 9.7 mg/dL (8.5-10.5); Carbon Dioxide 22 mmol/L (22-29); Chloride 103 mmol/L (98-107); Creatinine Clr Calc Pharmacy 142.9043; Globulin 2.3 g/dL (1.3-4.6); Glucose 113 mg/dL (65-115); Magnesium 1.8 mg/dL (1.7-2.3); NT Pro B Type Natriuretic Pept 257 pg/mL (0-125); Osmolality Calculated 288 mOsm/kg (285-295); Potassium 3.3 mmol/L (3.5-5.1); Sodium 140 mmol/L (136-145); Thyroid Stimulating Hormone 4.66 uIU/mL (0.27-4.20); Total Bilirubin 0.6 mg/dL (0.15-1.2); Total Protein 6.7 g/dL (6.6-8.7)
== END 2024-09-13 08:06 | disposition home or self-care (01) ==
PROVIDERS: Emergency Medicine; Emergency Provider Family Medicine; PCP Family Medicine
DX: R00.0 Tachycardia, unspecified (principal); R07.9 Chest pain, unspecified; I10 Essential (primary) hypertension
CPT/HCPCS: 36415; 71045; 80053; 83735; 83880; 84443; 84484; 85025; 85378; 93005; 96374; 99285; J3490

== ENCOUNTER 2024-10-24 06:02 | Outpatient (CLI) | payer MEDICAID, SELFPAY ==
--- NOTE | 2024-10-24 06:15 | USCV_ITS ---
Eugene Rose Age: 24 Gender: F : 2000 Exam Date: 10/24/2024 06:33 Ordering Phys: Félix Felix MD Technologist: [place] [facility] [place]: CP BP: 140 / 80 HR: 119 Rhythm: Sinus Technical Quality: Adequate MEASUREMENTS (Male / Female) Normal Values 2D ECHO LV Diastolic Diameter PLAX 4.5 cm 4.2 - 5.9 / 3.9 - 5.3 cm IVS Diastolic Thickness 1.0 cm 0.6 - 1.0 / 0.6 - 0.9 cm IVS Systolic Thickness 1.7 cm LVPW Diastolic Thickness 1.0 cm 0.6 - 1.0 / 0.6 - 0.9 cm LVPW Systolic Thickness 1.3 cm LVOT Diameter 2.0 cm LV Ejection Fraction 2D Teich 61.2 % LV Ejection Fraction MOD 4C 65.4 % LV Ejection Fraction MOD 2C 74.5 % LV Ejection Fraction 2C AL 75.7 % LA Diameter 3.8 cm RA Systolic Volume 4C AL 35.0 ml RA Systolic Volume 4C MOD 30.2 ml Aorta at Sinotubular Diameter 2.8 cm IVC Diameter 1.4 cm M-MODE LA Ao Ratio MM 1.7 AV Cusp Separation MM 2.3 cm DOPPLER AV Peak Velocity 93.0 cm/s LVOT Peak Velocity 85.0 cm/s AV Area Cont Eq vti 2.8 cm squared AV Area Cont Eq pk 2.8 cm squared MV Peak Velocity 90.0 cm/s MV Area PHT 6.5 cm squared Mitral E to A Ratio 1.2 TR Peak Velocity 186.0 cm/s TR Peak Gradient 13.8 mmHg TV Peak E Velocity 106.0 cm/s PV Peak Velocity 98.0 cm/s FINDINGS Left Ventricle Normal left ventricular size, systolic function and wall thickness, with no regional wall motion abnormalities. Left ventricular ejection fraction is estimated at 60%. Normal diastolic function. Right Ventricle The right ventricle is normal in size and function. Right Atrium The right atrium is normal in size. Left Atrium The left atrium is normal in size. Mitral Valve Structurally normal mitral valve without significant stenosis or prolapse. There is no mitral regurgitation. Aortic Valve Structurally normal aortic valve without significant sclerosis or stenosis. There is no aortic regurgitation. Tricuspid Valve Structurally normal tricuspid valve without significant stenosis or regurgitation. Pulmonary artery systolic pressure is normal. Pulmonic Valve Structurally normal pulmonic valve without significant stenosis. There is no pulmonic regurgitation. Pericardium Normal pericardium without effusion. Aorta Normal ascending aorta dimension. IVC The inferior vena cava appears normal. CONCLUSIONS Normal left ventricular size, systolic function and wall thickness, with no regional wall motion abnormalities. Left ventricular ejection fraction is estimated at 60%. Normal diastolic function. No significant valve abnormalities. There is no pericardial effusion. Right atrial pressure is around 5 mm of mercury. Beverly Chan MD (Electronically Signed) Final Date: 25 October 2024 20:17 S
== END 2024-10-24 06:03 | disposition home or self-care (01) ==
PROVIDERS: PCP Family Medicine; Visit Provider Family Medicine
DX: R07.9 Chest pain, unspecified (principal)
CPT/HCPCS: 93306

== ENCOUNTER → 2025-06-22 15:00 | Outpatient (BNVA) | payer MEDICAID, SELFPAY | PROVIDERS: PCP Family Medicine; Visit Provider Family Medicine | DX: I10 Essential (primary) hypertension (principal) | CPT/HCPCS: 80053; 84443; 85025 ==